=== PATIENT | female | born 1955 ===

== ENCOUNTER 2017-11-08 17:44 | Emergency (ER) | payer OTHER ==
[2017-11-08 17:53] VITALS: RESP 16
--- NOTE | 2017-11-08 18:53 | ED PDOC ---
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 Patient states that three days ago, she developed atraumatic, non-radiating bilateral lower back pain, worse with movement. She reports taking Ibuprofen with transient relief. Otherwise, denies numbness, tingling, urinary / stool incontinence, dysuria, hematuria, nausea, vomiting, diarrhea, abdominal pain, and trauma. PMD: Flor Anand Past Medical History Reviewed: Historical Data, Nursing Documentation, Vital Signs Vital Signs: Last Vital Signs Temp 98.3 F 11/08/17 17:46 Pulse 78 11/08/17 17:46 Resp 16 11/08/17 17:46 BP 142/83 11/08/17 17:46 Pulse Ox 99 11/08/17 17:46 - Medical History PMH: Arthritis, Bronchitis, Gastritis, Hypercholesterolemia - Surgical History Surgical History: Cholecystectomy Denies: Appendectomy (denies) - Family History Family History: States: Unknown Family Hx - Home Medications Home Medications: Ambulatory Orders Medication Instructions Recorded Naproxen 500 mg PO Q12 #20 tab 12/17/13 Promethazine DM [Phenergan DM 10 ml PO Q6 PRN #120 ml 12/17/13 Syrup] Cyclobenzaprine [Flexeril] 5 mg PO Q8 PRN #15 tab 02/21/16 Lidocaine 5% [Lidoderm] 1 ea TD DAILY PRN #30 patch 02/21/16 Naproxen [Naprosyn] 1 tab PO BID PRN #60 tab 02/21/16 Promethazine DM [Phenergan DM 10 ml PO Q6 PRN #120 ml 02/21/16 Syrup] Cyclobenzaprine [Cyclobenzaprine 10 mg PO Q8 PRN #10 tab 11/08/17 HCl] Meloxicam [Mobic] 7.5 mg PO DAILY PRN #10 tab 11/08/17 Nitrofurantoin Macrocrystals 100 mg PO BID #14 cap 11/08/17 [Macrobid] - Allergies Allergies/Adverse Reactions: Allergies Allergy/AdvReac Type Severity Reaction Status Date / Time No Known Allergies Allergy Verified 02/21/16 14:05 Review of Systems ROS Statement: Except As Marked, All Systems Reviewed And Found Negative Gastrointestinal: Negative for: Nausea, Vomiting, Abdominal Pain, Diarrhea Genitourinary Female: Negative for: Dysuria, Incontinence, Hematuria Musculoskeletal: Positive for: Back Pain (atraumatic, non-radiating bilateral lower back pain, worse with movement) Neurological: Negative for: Numbness (or tingling) Physical Exam - Reviewed Nursing Documentation Reviewed: Yes Vital Signs Reviewed: Yes - Physical Exam Appears: Positive for: No Acute Distress Cardiovascular/Chest: Positive for: Regular Rate, Rhythm Respiratory: Positive for: Normal Breath Sounds. Negative for: Accessory Muscle Use, Respiratory Distress Gastrointestinal/Abdominal: Positive for: Normal Exam, Soft. Negative for: Tenderness Back: Positive for: Normal Inspection, Other (minimal bilateral para lumbar muscle spasm). Negative for: L CVA Tenderness, R CVA Tenderness, Vertebral Tenderness Extremity: Negative for: Other (straight leg raise bilat) Neurologic/Psych: Positive for: Alert, Oriented (x3) - ECG O2 Sat by Pulse Oximetry: 99 (RA) Pulse Ox Interpretation: Normal Medical Decision Making Medical Decision Making: Time: 1809 Initial Impression: back spasm Initial Plan: --Urine dipstick --Flexeril 10 mg PO --Toradol 15 mg IM --Urine culture --Urinalysis --Patient advised to follow up with [facility] for further evaluation and possible imaging. She was also informed to continue with Ibuprofen and prescribed muscle relaxer. Scribe Attestation: Documented by Greer Mccormick, acting as a scribe for Julio Benítez PA-C. Provider Scribe Attestation: All medical record entries made by the Scribe were at my direction and personally dictated by me. I have reviewed the chart and agree that the record accurately reflects my personal performance of the history, physical exam, medical decision making, and the department course for this patient. I have also personally directed, reviewed, and agree with the discharge instructions and disposition. Disposition - Clinical Impression Clinical Impression: Low back pain, UTI (urinary tract infection) - Patient ED Disposition Is Patient to be Admitted: No - Disposition Referrals: [facility] [Outside] Disposition: Routine/Home Disposition Time: 19:27 Condition: IMPROVED Additional Instructions: RODRIGUE ANAYA, thank you for letting us take care of you today. Your provider was Tiffany Phoenix MD and you were treated for BACK PAIN. The emergency medical care you received today was directed at your acute symptoms. If you were prescribed any medication, please fill it and take as directed. It may take several days for your symptoms to resolve. Return to the Emergency Department if your symptoms worsen, do not improve, or if you have any other problems. Please contact your doctor or call one of the physicians/clinics you have been referred to that are listed on the Patient Visit Information form that is included in your discharge packet. Bring any paperwork you were given at discharge with you along with any medications you are taking to your follow up visit. Our treatment cannot replace ongoing medical care by a primary care provider outside of the emergency department. Thank you for allowing the [facility] team to be part of your care today. If you had an X-Ray or CT scan: A Radiologist will review the ED reading if any change in treatment is needed we will contact you. If you had a blood, urine, or wound culture: It will take several days for the results, if any change in treatment is needed we will contact you. If you had an STI test: It will take 48 hours for the results. Please call after 1 week if you have not heard back. Prescriptions: Cyclobenzaprine [Cyclobenzaprine HCl] 10 mg PO Q8 PRN #10 tab PRN Reason: Muscle Spasm Meloxicam [Mobic] 7.5 mg PO DAILY PRN #10 tab PRN Reason: Pain, Mild (1-3) Nitrofurantoin Macrocrystals [Macrobid] 100 mg PO BID #14 cap Instructions: Low Back Pain (DC), Urinary Tract Infection, Adult (DC) Forms: [facility] (Serbian) Print Language: PRYDEINIG
[2017-11-08 19:22] LABS: URINE BACTERIA FEW (<OCC); URINE BILIRUBIN NEGATIVE (NEGATIVE); URINE BLOOD SMALL (NEGATIVE); URINE CLARITY CLEAR (Clear); URINE COLOR STRAW (YELLOW); URINE GLUCOSE (UA) NEG (Normal); URINE LEUKOCYTE ESTERASE MOD Leu/uL (Negative); URINE PROTEIN NEGATIVE (NEGATIVE); URINE UROBILINOGEN 0.2-1.0 mg/dL (0.2-1.0)
[2017-11-08 19:23] LABS: RENAL EPITHELIAL 2 /hpf (0-3); SQUAMOUS EPITHIAL 3 /hpf (0-5)
[2017-11-08 20:08] VITALS: BP 134/78; PULSE 76; TEMP 98.2; O2SAT 100
== END 2017-11-08 20:08 | disposition home or self-care (01) ==
LOC: H.ER 17:44
DX: N39.0 Urinary tract infection, site not specified (principal); M54.5 Low back pain
CPT/HCPCS: 81003; 87086; 96372; 99282; J1885